=== PATIENT | male | born 1935 | race Caucasian/White ===

== ENCOUNTER → 2016-07-09 | Day surgery (SDC) | payer MEDICARE, OTHER ==
[~2016-07-09] MED LIST: ASPIRIN81 MG PO; B-12500 MCG PO; COREG 12.5MG12.5 MG PO; ELIQUIS5 MG PO; NEURONTIN 300300 MG PO; SIMVASTATIN40 MG PO; TRAMADOL HCL50 MG PO
== END | disposition home or self-care (01) ==
LOC: OR 06:11
PROVIDERS: Surgery
PROC: 0DJ08ZZ Inspection of Upper Intestinal Tract, Via Natural or Artificial Opening Endoscopic (ICD-10-PCS; principal; 2016-07-09 07:45)
PROC: 0DJD8ZZ Inspection of Lower Intestinal Tract, Via Natural or Artificial Opening Endoscopic (ICD-10-PCS; 2016-07-09 07:45)
DX: I85.00 Esophageal varices without bleeding (principal); K44.9 Diaphragmatic hernia without obstruction or gangrene; K64.9 Unspecified hemorrhoids; D64.89 Other specified anemias; I11.0 Hypertensive heart disease with heart failure; I50.23 Acute on chronic systolic (congestive) heart failure; D50.0 Iron deficiency anemia secondary to blood loss (chronic); I25.10 Atherosclerotic heart disease of native coronary artery without angina pectoris; I48.91 Unspecified atrial fibrillation; N40.1 Benign prostatic hyperplasia with lower urinary tract symptoms; E78.5 Hyperlipidemia, unspecified; E55.9 Vitamin D deficiency, unspecified; M19.039 Primary osteoarthritis, unspecified wrist; G25.81 Restless legs syndrome; Z86.73 Personal history of transient ischemic attack (TIA), and cerebral infarction without residual deficits; Z79.82 Long term (current) use of aspirin; Z79.01 Long term (current) use of anticoagulants; Z79.899 Other long term (current) drug therapy; Z95.1 Presence of aortocoronary bypass graft; Z95.0 Presence of cardiac pacemaker; Z95.5 Presence of coronary angioplasty implant and graft; Z82.49 Family history of ischemic heart disease and other diseases of the circulatory system; Z83.3 Family history of diabetes mellitus; Z90.89 Acquired absence of other organs; Z98.41 Cataract extraction status, right eye; Z98.42 Cataract extraction status, left eye
CPT/HCPCS: J7120

== ENCOUNTER → 2016-07-30 | Outpatient (CLI) | payer MEDICARE, OTHER | LOC: US 09:07 | DX: I85.01 Esophageal varices with bleeding (principal); D50.0 Iron deficiency anemia secondary to blood loss (chronic) | CPT/HCPCS: 76700 ==

== ENCOUNTER 2021-03-13 10:44 | Inpatient (IN) | payer MEDICARE ==
[~2021-03-13] VITALS: Ht 182.9 cm; Wt 84.9 kg
[~2021-03-13 10:44] MED LIST changes: -ASPIRIN81 MG PO; -B-12500 MCG PO; -COREG 12.5MG12.5 MG PO; +COREG6.25 MG PO
[2021-03-13 11:16] LABS: HEMOGLOBIN 11.5 gm/dl (14.0-17.5); RED BLOOD COUNT 3.92 M/UL (4.20-5.50); WHITE BLOOD COUNT 8.3 K/UL (4.5-11.0)
[2021-03-13] MEDS ORDERED: FINASTERIDE5 MG PO (11:38)
[2021-03-13] MEDS ORDERED: POLY-IRON150 MG PO (11:38)
[2021-03-13] MEDS ORDERED: ATORVASTATIN CA40 MG PO (11:39)
[2021-03-13] MEDS ORDERED: ASPIRIN EC81 MG PO (11:48)
[2021-03-13 11:51] LABS: BUN/CREATININE RATIO 22 (0-10)
[2021-03-13] MEDS ORDERED: B-122500 MCG SL (11:51)
[2021-03-14 06:39] LABS: HEMOGLOBIN 10.4 gm/dl (14.0-17.5); RED BLOOD COUNT 3.55 M/UL (4.20-5.50); WHITE BLOOD COUNT 6.5 K/UL (4.5-11.0)
[2021-03-14 07:22] LABS: BUN/CREATININE RATIO 24 (0-10)
[2021-03-15 02:24] LABS: HEMOGLOBIN 9.7 gm/dl (14.0-17.5); RED BLOOD COUNT 3.27 M/UL (4.20-5.50); WHITE BLOOD COUNT 5.3 K/UL (4.5-11.0)
[2021-03-15 02:52] LABS: BUN/CREATININE RATIO 21 (0-10)
[2021-03-16 06:26] LABS: BUN/CREATININE RATIO 18 (0-10)
[2021-03-17] MEDS ORDERED: OMNICEF 300 MG300 MG PO (12:10)
== END 2021-03-17 16:09 | disposition home or self-care (01) | DRG 557 ==
LOC: ER1 10:44 → M/S 14:21 → CDU 14:21 → M/S 15:05
PROVIDERS: Family Medicine; ADMIT Internal Medicine
DX: M62.82 Rhabdomyolysis (principal); J18.9 Pneumonia, unspecified organism; J96.01 Acute respiratory failure with hypoxia; Z20.822 Contact with and (suspected) exposure to COVID-19; I25.10 Atherosclerotic heart disease of native coronary artery without angina pectoris; I10 Essential (primary) hypertension; E78.00 Pure hypercholesterolemia, unspecified; M19.90 Unspecified osteoarthritis, unspecified site; F17.210 Nicotine dependence, cigarettes, uncomplicated; T49.0X5A Adverse effect of local antifungal, anti-infective and anti-inflammatory drugs, initial encounter; I48.91 Unspecified atrial fibrillation; E86.0 Dehydration; R53.81 Other malaise; Z79.01 Long term (current) use of anticoagulants; Z79.82 Long term (current) use of aspirin; Z95.1 Presence of aortocoronary bypass graft; Z95.0 Presence of cardiac pacemaker; Z87.01 Personal history of pneumonia (recurrent); Z86.73 Personal history of transient ischemic attack (TIA), and cerebral infarction without residual deficits
CPT/HCPCS: 36415; 36600; 71045; 80048; 80053; 81001; 82550; 82553; 82803; 83605; 83690; 83735; 83874; 84484; 85025; 85027; 87040; 93005; 94640; 94760; 96374; 96375; 97116-GP-CQ; 97161; 97166; 99285; J0456; J0696; J2405; J7030; U0002

== ENCOUNTER → 2021-03-29 | Outpatient (CLI) | payer MEDICARE ==
[~2021-03-29] MED LIST changes: +ASPIRIN EC81 MG PO; +ATORVASTATIN CA40 MG PO; +B-122500 MCG SL; +FINASTERIDE5 MG PO; +OMNICEF 300 MG300 MG PO; +POLY-IRON150 MG PO
[2021-03-29 16:41] LABS: BUN/CREATININE RATIO 17 (0-10)
== END ==
LOC: VNA 15:54
PROVIDERS: Internal Medicine
DX: R79.89 Other specified abnormal findings of blood chemistry (principal)
CPT/HCPCS: 80048

== ENCOUNTER → 2021-06-23 | Outpatient (CLI) | payer MEDICARE | LOC: KOH-I 09:41 | DX: I50.21 Acute systolic (congestive) heart failure (principal); J90 Pleural effusion, not elsewhere classified; J98.11 Atelectasis | CPT/HCPCS: 71046 ==

== ENCOUNTER 2021-07-22 14:43 | Inpatient (IN) | payer MEDICARE ==
[~2021-07-22] VITALS: Ht 182.9 cm; Wt 81.6 kg
[2021-07-22 15:56] LABS: HEMOGLOBIN 11.2 gm/dl (14.0-17.5); RED BLOOD COUNT 3.79 M/UL (4.20-5.50); WHITE BLOOD COUNT 6.3 K/UL (4.5-11.0)
[2021-07-22 16:37] LABS: BUN/CREATININE RATIO 18 (0-10)
--- NOTE | 2021-07-23 03:42 | NUR ---
VSS. ROOM AIR. PATIENT RESTLESS AT NIGHT. NO COMPLAINTS AT THIS TIME.
[2021-07-23 04:10] LABS: HEMOGLOBIN 11.5 gm/dl (14.0-17.5); RED BLOOD COUNT 3.87 M/UL (4.20-5.50); WHITE BLOOD COUNT 6.7 K/UL (4.5-11.0)
[2021-07-23 04:33] LABS: BUN/CREATININE RATIO 18 (0-10)
[2021-07-23] MEDS ORDERED: FLOMAX 0.4 MG0.4 MG PO (07:16)
[2021-07-23] MEDS ORDERED: ALDACTONE50 MG PO (07:20)
[2021-07-23] MEDS ORDERED: FLINTSTONES1 EAC1 PO (07:22)
[2021-07-23] MEDS ORDERED: MIRAPEX0.5 MG PO (07:22)
[2021-07-23] MEDS ORDERED: VITAMIN B-122500 MCG SL (07:31)
[2021-07-24 03:19] LABS: HEMOGLOBIN 10.9 gm/dl (14.0-17.5); RED BLOOD COUNT 3.67 M/UL (4.20-5.50); WHITE BLOOD COUNT 5.8 K/UL (4.5-11.0)
--- NOTE | 2021-07-24 16:50 | NUR ---
2280- NOTIFIED DR. ALVAREZ PT HAD 6 BEAT RUN OF VTACH. ORDERED STAT MAGNESIUM LEVEL. NOTIFIY PROVIDER IF LOW.
[2021-07-25 05:05] LABS: HEMOGLOBIN 11.1 gm/dl (14.0-17.5); RED BLOOD COUNT 3.81 M/UL (4.20-5.50); WHITE BLOOD COUNT 5.4 K/UL (4.5-11.0)
[2021-07-26 03:13] LABS: HEMOGLOBIN 11.7 gm/dl (14.0-17.5); RED BLOOD COUNT 3.95 M/UL (4.20-5.50); WHITE BLOOD COUNT 5.9 K/UL (4.5-11.0)
[2021-07-26] MEDS ORDERED: LASIX40 MG PO (11:39)
[2021-07-26] MEDS ORDERED: ENTRESTO 24 MG1 EACH PO (11:39)
[2021-07-26] MEDS ORDERED: OMNICEF 300 MG300 MG PO (11:41)
== END 2021-07-26 13:27 | disposition home or self-care (01) | DRG 291 ==
LOC: ER1 14:43 → CDU 17:20 → M/S 17:20
PROVIDERS: Internal Medicine; Physician Assistant; ADMIT Internal Medicine
PROC: B24BZZZ Ultrasonography of Heart with Aorta (ICD-10-PCS; principal; 2021-07-24)
DX: I13.0 Hypertensive heart and chronic kidney disease with heart failure and stage 1 through stage 4 chronic kidney disease, or unspecified chronic kidney disease (principal); J18.9 Pneumonia, unspecified organism; I50.23 Acute on chronic systolic (congestive) heart failure; E87.1 Hypo-osmolality and hyponatremia; N30.00 Acute cystitis without hematuria; Z20.822 Contact with and (suspected) exposure to COVID-19; N40.0 Benign prostatic hyperplasia without lower urinary tract symptoms; I45.81 Long QT syndrome; E87.6 Hypokalemia; N18.30 Chronic kidney disease, stage 3 unspecified; E78.00 Pure hypercholesterolemia, unspecified; I73.9 Peripheral vascular disease, unspecified; E88.09 Other disorders of plasma-protein metabolism, not elsewhere classified; I48.0 Paroxysmal atrial fibrillation; I25.10 Atherosclerotic heart disease of native coronary artery without angina pectoris; B96.1 Klebsiella pneumoniae [K. pneumoniae] as the cause of diseases classified elsewhere; R53.81 Other malaise; Z95.1 Presence of aortocoronary bypass graft; Z95.0 Presence of cardiac pacemaker; Z79.01 Long term (current) use of anticoagulants; Z87.01 Personal history of pneumonia (recurrent); Z90.49 Acquired absence of other specified parts of digestive tract; Z87.891 Personal history of nicotine dependence
CPT/HCPCS: ECHO; 36415; 71045; 71046; 80048; 80053; 81001; 82550; 82553; 83735; 83880; 84484; 85025; 85027; 87077; 87086; 87186; 93005; 93306; 97116-GP-CQ; 97161; 97165; J0696; J1335; J1940

== ENCOUNTER → 2021-10-19 | Outpatient (CLI) | payer MEDICARE ==
[~2021-10-19] MED LIST changes: +ALDACTONE50 MG PO; +ENTRESTO 24 MG1 EACH PO; +FLINTSTONES1 EAC1 PO; +FLOMAX 0.4 MG0.4 MG PO; +LASIX40 MG PO; +MIRAPEX0.5 MG PO; +VITAMIN B-122500 MCG SL
== END ==
LOC: US 13:56
DX: I70.311 Atherosclerosis of unspecified type of bypass graft(s) of the extremities with intermittent claudication, right leg (principal); L03.119 Cellulitis of unspecified part of limb; R60.9 Edema, unspecified; M79.673 Pain in unspecified foot; M79.604 Pain in right leg; L97.919 Non-pressure chronic ulcer of unspecified part of right lower leg with unspecified severity
CPT/HCPCS: 93922; 93925

== ENCOUNTER → 2022-01-17 | Outpatient (CLI) | payer MEDICARE | LOC: LAB 10:43 | PROVIDERS: Physician Assistant | DX: R79.89 Other specified abnormal findings of blood chemistry (principal); E87.5 Hyperkalemia | CPT/HCPCS: 36415; 80048 ==